=== PATIENT | female | born 2000 | race Caucasian/White ===

== ENCOUNTER 2021-11-18 10:31 | Emergency (ER) | payer BC, SELFPAY ==
[2021-11-18 10:39] VITALS: BP 127/70; PULSE 80; RESP 16; TEMP 36.7; O2SAT 98
--- NOTE | 2021-11-18 11:07 | ED.URI ---
HPI - URI/Sore Throat General Chief Complaint: Upper Respiratory Infection Stated Complaint: Sore throat, congestion, cough Time Seen by Provider: 11/18/21 11:07 Source: patient Mode of arrival: ambulatory Limitations: no limitations History of Present Illness HPI Narrative: Janelle Molina is a 21 yo female with no PMH who comes to [facility] care with 2-3 days of sore throat, subjective fever, cough-states that when she coughs her chest hurt, had some green mucus when she coughs Related Data Allergies Allergy/AdvReac Type Severity Reaction Status Date / Time No Known Allergies Allergy Verified 11/18/21 10:45 Review of Systems Review of Systems: CONSTITUTIONAL: Denies fever, chills, sweats. Subjective fever EYES: Denies visual changes, redness, discharge. ENT: Denies rhinorrhea, congestion, has sore throat, otalgia. CARDIOVASCULAR: Denies chest pain, palpitations, edema. RESPIRATORY: Denies dyspnea, wheezing, has cough GASTROINTESTINAL: Denies abdominal pain, nausea, vomiting, diarrhea. GENITOURINARY: Denies dysuria, hematuria, abnormal discharge SKIN: Denies rash or itching. NEUROLOGIC: Denies numbness, or focal weakness. PSYCHIATRIC: Denies anxiety or depression. [facility] Past Medical History Medical History No acute medical problems Social History Social History (Updated 11/18/21 @ 11:25 by Alexandra Barraza CNP) Smoking status: Never smoker Alcohol intake: never Comments At time of signature, I agree with nursing past medical, surgical, social and family history. There is no relevant family history pertinent to the presenting complaint. Exam Narrative: GENERAL: This is a well-nourished, well-developed patient, in mild distress. HEAD: normocephalic, atraumatic. EYES: Sclera clear/white. Vision is grossly intact. EARS: External ears normal, auditory canals clear and without drainage, TMs normal without perforation. Hearing grossly intact. NOSE: External nose normal without nasal discharge, nares with redness, has no rhinorrhea. THROAT: Mucous membranes moist, posterior pharynx erythema NECK: Neck supple, submandibular lymph nodes tender CARDIOVASCULAR: Regular rate and rhythm without murmurs, gallops, or rubs. RESPIRATORY: Clear to auscultation. Breath sounds equal bilaterally. No wheezes, rales, or rhonchi. GASTROINTESTINAL: Abdomen soft, non-tender, SKIN: warm, intact with no suspicious lesions or rash, good texture and turgor. NEURO: awake, alert, and oriented to person, place and time. There were no obvious focal neurologic abnormalities. Steady gait EXTREMITIES: Normal range of motion. BACK: Nontender without deformity Course Course Emergency Course: Patient comes with cough subjective fever and sore throat x3 days Strep test negative Patient states that lymph nodes and throat have really been bothering her so started on Zithromax, prednisone, Zyrtec Level of Care: Express Care Visit Vital Signs Vital signs: Vital Signs Temperature 98.1 F 11/18/21 10:39 Pulse Rate 80 11/18/21 10:39 Respiratory Rate 16 11/18/21 10:39 Blood Pressure 127/70 11/18/21 10:39 Pulse Oximetry 98 11/18/21 10:39 Temperature 98.1 F 11/18/21 10:39 Pulse Rate 80 11/18/21 10:39 Respiratory Rate 16 11/18/21 10:39 Blood Pressure 127/70 11/18/21 10:39 Pulse Oximetry 98 11/18/21 10:39 MDM - URI/Sore Throat Differential Diagnosis Differential diagnosis: Likely upper respiratory infection, sinusitis, bronchitis, influenza, pharyngitis and other Lab Data Labs: Strep Screen Presumptive Negative *(Reference Range: Negative)* Discharge Plan Discharge Clinical Impression: Bronchitis Patient Disposition: Home, Self-Care Condition: Stable Instructions: Acute Bronchitis (ED) Additional Instructions: Push fluids and take medication as prescribed Prescriptions: New
== END 2021-11-18 11:35 | disposition home or self-care (01) ==
PROVIDERS: Emergency Provider Nurse Practitioner
DX: J40 Bronchitis, not specified as acute or chronic (principal)
CPT/HCPCS: 87081; 87880; 99213; G0463